=== PATIENT | female | born 1985 | race Caucasian/White ===

== ENCOUNTER 2016-09-29 22:22 | Emergency (ER) | payer MEDICAID, OTHER ==
[~2016-09-29] VITALS: Ht 157.5 cm; Wt 108.9 kg
[2016-09-29 23:00] VITALS: BP 149/87
[2016-09-29] MEDS ORDERED: ALUMINUM HYD/MAG/SIMETHICONE 30 ML UDC PO ONE (23:55)
[2016-09-29] MEDS ORDERED: LIDOCAINE VISCOUS 2% 20 ML UDC PO ONE (23:55)
[2016-09-29] MEDS ORDERED: DICYCLOMINE HCL LIQUID 10 MG/5 ML UDC PO ONE (23:55)
[2016-09-30 01:54] VITALS: BP 130/85
== END 2016-09-30 01:48 | disposition home or self-care (01) ==
LOC: MED 22:22
DX: K21.9 Gastro-esophageal reflux disease without esophagitis (principal); Z88.5 Allergy status to narcotic agent; Z88.6 Allergy status to analgesic agent
CPT/HCPCS: 71010; 81025; 93005; 99284; Q0092

== ENCOUNTER 2018-12-18 11:21 | Emergency (ER) | payer MEDICAID ==
[~2018-12-18] VITALS: Ht 162.6 cm; Wt 112.9 kg
[2018-12-18 11:28] VITALS: BP 130/73
--- NOTE | 2018-12-18 11:35 | NUR ---
PT TO ER LOBBY, PT ALERT AND AWAKE, VS WNL
--- NOTE | 2018-12-18 11:36 | NUR ---
PER DR MCCOY, PT DOES NOT REQUIRE AN EKG AT THIS TIME
--- NOTE | 2018-12-18 11:45 | NUR ---
PT TAKEN TO BED 12.
[2018-12-18] MEDS ORDERED: LORazepam 2 MG/ML VIAL IM ONE (12:45)
[2018-12-18] MEDS ORDERED: KETOROLAC 60 MG/2 ML VIAL IM ONE (12:45)
--- NOTE | 2018-12-18 13:19 | NUR ---
PATIENT COMPLAINING OF NON-RADIATING CHEST PAIN, SHARP, 9/10 SINCE LAST FRIDAY, WAS SEEN AT [facility]. PATIENT COMPLAINS OF NAUSEA, BUT NOT VOMITTING. SKIN IS WARM, DRY. PATIENT IS ALERT AND ORIENTED X4. ANSWERS QUESTIONS APPROPRIATELY. PATIENT DENIES DRUG/ETOH USE. BED SET TO LOWEST POSITION, SIDE RAIL UPX1, MOTHER IS AT BEDSIDE. EKG NOT DONE PER DOCTOR SREE ORDERS.
[2018-12-18 14:15] VITALS: BP 125/70
--- NOTE | 2018-12-18 14:15 | NUR ---
Patient discharged with v/s stable. Written and verbal after care instructions given and explained. Patient alert, oriented and verbalized understanding of instructions. Ambulatory with steady gait. All questions addressed prior to discharge. ID band removed. Patient advised to follow up with PMD. Work excuse provided to patient. Rx of Xana 0.5mg and Motrin 800mg given. Patient educated on indication of medication including possible reaction and side effects. Opportunity to ask questions provided and answered.
== END 2018-12-18 14:15 | disposition home or self-care (01) ==
LOC: MED 11:21
DX: M94.0 Chondrocostal junction syndrome [Tietze] (principal); R06.4 Hyperventilation; Z88.5 Allergy status to narcotic agent
CPT/HCPCS: 96372; 99283; J1885; J2060